=== PATIENT | male | born 1995 | race Caucasian/White ===

== ENCOUNTER 2017-09-17 20:54 | Emergency (ER) | payer OTHER, SELFPAY ==
[2017-09-17 20:55] VITALS: BP 133/77; PULSE 70; RESP 16; TEMP 36.2; O2SAT 97; BMI 29.6
[2017-09-17 21:51] VITALS: BP 120/80; PULSE 63; RESP 16; O2SAT 98
--- NOTE | 2017-09-17 23:56 | ED.VISSUMM ---
- ER Visit Summary Date of Service: 09/17/17 Chief Complaint: Dog bite History of Present Illness: The patient is a 22 M who reports that he was bit by an [place] toscano dog to his right upper and lower eyelids just prior to arrival. His tetanus is up-to-date. He denies any pain. He denies any change in his vision. Physical Examination: Vitals: Stable. Afebrile. Right eye: Laceration through the lateral portion of his upper eyelid that is irregular and gaping. This is through the tarsal plate. He also has a laceration through the lower eyelid that extends through the margin of the lid. Extraocular motions are intact. There does not appear to be any trauma to the globe. General: Well-nourished and well-developed. Head: Normocephalic atraumatic. Neck: Supple, no lymphadenopathy. No JVD. Nontender. Cardiovascular: Regular rate and rhythm. No murmurs. Respiratory: No respiratory distress. Clear to auscultation bilaterally. Abdominal: Soft, nontender, nondistended, normal bowel sounds. No guarding, rebound, or peritoneal signs. Back: Nontender. Extremities: Nontender, no edema. Skin: Normal color, no rash. Neurologic: Alert and oriented ?3. Cranial nerves II through XII are intact. Normal strength and sensation. Psych: Normal affect. Emergency Department Course and Treatment: The patient refused pain medications. Treatment Plan: Patient was discussed with Dr. Wilkins who asked that we transfer him to a tertiary care center. The patient was discussed with Dr. Mendoza at [facility] who is accepted him in transfer. I did discuss with him that he needs to have this repaired by an attending plastic surgeon or gas turbine mechanic for optimal outcome. Disposition: Transferred in stable condition. Impression: 1. Complex right upper eyelid laceration with involvement of the tarsal plate. 2. Right lower eyelid laceration with involvement of the lid margin. 3. Dog bite. This note was generated with [employer] software. It may contain incorrect words, spelling, and punctuation that were not noted in review of the chart prior to signing ED Disposition - Plan for ED Patient: Disposition: Home or Assisted Living Chief Complaint: Bite Referrals: Dora Odonnell MD [Primary Care Provider] -
--- NOTE | 2017-09-17 23:59 | ED.DCSUM_ITS ---
- ER Visit Summary Date of Service: 09/17/17 Chief Complaint: Dog bite History of Present Illness: The patient is a 22 M who reports that he was bit by an [place] toscano dog to his right upper and lower eyelids just prior to arrival. His tetanus is up-to-date. He denies any pain. He denies any change in his vision. Physical Examination: Vitals: Stable. Afebrile. Right eye: Laceration through the lateral portion of his upper eyelid that is irregular and gaping. This is through the tarsal plate. He also has a laceration through the lower eyelid that extends through the margin of the lid. Extraocular motions are intact. There does not appear to be any trauma to the globe. General: Well-nourished and well-developed. Head: Normocephalic atraumatic. Neck: Supple, no lymphadenopathy. No JVD. Nontender. Cardiovascular: Regular rate and rhythm. No murmurs. Respiratory: No respiratory distress. Clear to auscultation bilaterally. Abdominal: Soft, nontender, nondistended, normal bowel sounds. No guarding, rebound, or peritoneal signs. Back: Nontender. Extremities: Nontender, no edema. Skin: Normal color, no rash. Neurologic: Alert and oriented ?3. Cranial nerves II through XII are intact. Normal strength and sensation. Psych: Normal affect. Emergency Department Course and Treatment: The patient refused pain medications. Treatment Plan: Patient was discussed with Dr. Wilkins who asked that we transfer him to a tertiary care center. The patient was discussed with Dr. Mendoza at [facility] who is accepted him in transfer. I did discuss with him that he needs to have this repaired by an attending plastic surgeon or chuck wagon driver for optimal outcome. Disposition: Transferred in stable condition. Impression: 1. Complex right upper eyelid laceration with involvement of the tarsal plate. 2. Right lower eyelid laceration with involvement of the lid margin. 3. Dog bite. This note was generated with [employer] software. It may contain incorrect words, spelling, and punctuation that were not noted in review of the chart prior to signing ED Disposition - Plan for ED Patient: Disposition: Home or Assisted Living Chief Complaint: Bite Referrals: Dora Odonnell MD [Primary Care Provider] -
== END 2017-09-17 21:52 | disposition home or self-care (01) ==
PROVIDERS: Emergency Provider Emergency Medicine; Family Provider Pediatrics; PCP Pediatrics
DX: S01.111A Laceration without foreign body of right eyelid and periocular area, initial encounter (principal); W54.0XXA Bitten by dog, initial encounter; Y93.89 Activity, other specified; Y92.89 Other specified places as the place of occurrence of the external cause; Y99.8 Other external cause status
CPT/HCPCS: 99283